=== PATIENT | female | born 1960 | race Caucasian/White ===

== ENCOUNTER 2017-10-04 09:24 | Emergency (ER) | payer MEDICARE, BC ==
[2017-10-04 09:40] VITALS: BP 157/85
--- NOTE | 2017-10-04 09:57 | EDM.PDOC ---
ED HPI GENERAL MEDICAL PROBLEM - General Chief Complaint: ENT Problem Stated Complaint: [id number] SINUSES THROAT Time Seen by Provider: 10/04/17 09:45 Source of Information: Reports: Patient, RN, RN Notes Reviewed History Limitations: Reports: No Limitations - History of Present Illness INITIAL COMMENTS - FREE TEXT/NARRATIVE: Pt presents to the ER with c/o burning sinus pain beginning at 0400 on Thursday morning. She states she had a sinus infection in July for which she was given Augmentin. She states it was resolved after this. Patient states she has many allergies and is not able to take nasal steroids. She states she has had a headache, sore throat, and fever and chills. She states she has some nausea but attributes this to the post nasal drainage. Patient states she has not vomited. Pt states she has taken acetaminophen with codeine, and is unable to take ibuprofen. Onset: Gradual Onset Date: 10/02/17 Onset Time: 04:00 Duration: Constant, Getting Worse Location: Reports: Head, Face, Chest Quality: Reports: Burning Severity: Moderate Improves with: Reports: None Worsens with: Reports: None Associated Symptoms: Reports: No Other Symptoms Head Pain Score (Numeric/FACES): 5 - Related Data Allergies Allergy/AdvReac Type Severity Reaction Status Date / Time trimethoprim [From Bactrim] Allergy Mild Hives Verified 10/04/17 09:42 clindamycin Allergy Hives Verified 10/04/17 09:42 diclofenac sodium Allergy Hives Verified 10/04/17 09:42 [From Voltaren] duloxetine HCl Allergy Nausea Verified 10/04/17 09:42 [From Cymbalta] fluticasone Allergy Cough Verified 10/04/17 09:42 Histamine H2 Inhibitors Allergy Cannot Verified 10/04/17 09:42 Remember house dust mite Allergy Cannot Verified 10/04/17 09:42 Remember ibuprofen Allergy Nausea and Verified 10/04/17 09:42 Vomiting levofloxacin [From Levaquin] Allergy Other Verified 10/04/17 09:42 lisinopril Allergy Cough Verified 10/04/17 09:42 metronidazole [From Flagyl] Allergy Hives Verified 10/04/17 09:42 Metronidazole HCl Allergy Hives Verified 10/04/17 09:42 [From Flagyl] minocycline [Minocycline] Allergy Hives Verified 10/04/17 09:42 mometasone furoate Allergy Cough Verified 10/04/17 09:42 [From Nasonex] pentazocine lactate Allergy Hallucinati Verified 10/04/17 09:42 [From Talwin] ons pregabalin [From Lyrica] Allergy lightheaded Verified 10/04/17 09:42 sertraline HCl [From Zoloft] Allergy Chest Verified 10/04/17 09:42 Tightness sulfamethoxazole Allergy Hives Verified 10/04/17 09:42 [From Bactrim] Home Meds: Home Meds Albuterol [Ventolin HFA] 2 puff INH Q6HR PRN 07/30/13 [History] Budesonide/Formoterol [Symbicort 160-4.5 MCG] 2 puff INH DAILY 07/30/13 [History ] Cyclobenzaprine [Flexeril] 10 mg PO TID PRN 07/30/13 [History] Fexofenadine [Merna] 180 mg PO DAILY 02/28/15 [History] LORazepam [Ativan] 0.5 mg PO Q6HR PRN 02/28/15 [History] Losartan [Cozaar] 100 mg PO DAILY 02/28/15 [History] Montelukast [Singulair] 10 mg PO BEDTIME 02/28/15 [History] Aspirin [Adult Low Dose Aspirin EC] 81 mg PO DAILY 06/19/15 [History] Omeprazole 20 mg PO BID 06/19/15 [History] oxyCODONE 5 - 10 mg PO Q6HR PRN 06/19/15 [History] Sennosides/Docusate Sodium [Ying-Colace] 1 tab PO DAILY 10/12/15 [History] Levothyroxine [Synthroid] 1 tab PO DAILY 10/04/17 [History] Past Medical History HEENT History: Reports: Allergic Rhinitis Cardiovascular History: Reports: Hypertension Respiratory History: Reports: Bronchitis, Recurrent, Other (See Below) Other Respiratory History: small airway disease, lung nodules Gastrointestinal History: Reports: GERD, Hiatal Hernia Other Genitourinary History: urinary frequency [employer] History: Reports: Endometriosis Musculoskeletal History: Reports: Osteoarthritis, Other (See Below) Other Musculoskeletal History: Scoliosis, DDD Neurological History: Reports: CVA, Headaches, Chronic, Neuropathy, Peripheral Psychiatric History: Reports: Anxiety Endocrine/Metabolic History: Reports: Other (See Below) Other Endocrine/Metabolic History: nodules and goiter on thyroid Hematologic History: Reports: Iron Deficiency Dermatologic History: Reports: Psoriasis - Infectious Disease History Infectious Disease History: Reports: Chicken Pox - Past Surgical History Female Surgical History: Reports: Section, Hysterectomy Neurological Surgical History: Reports: Spinal Fusion Social & Family History - Family History Cardiac: Reports: Hypertension, [place], Stent GI: Reports: Other (See Below) Other GI Family History: Chrohns Endocrine/Metabolic: Reports: Diabetes, Type I Oncologic: Reports: Leukemia, Lung Other Oncologic Family History: Father - CAD, CVA, DM HTN. Mother is from lung cancer; also had CAD, Crohns. Sister desceased also from lung cancer. both of patients larisa- son and cathy - have scoliosis - Living Situation & Occupation Living situation: Reports: with Family Occupation: Disabled ED ROS ENT - Review of Systems Review Of Systems: ROS reveals no pertinent complaints other than HPI. ED EXAM, ENT - Physical Exam Exam: See Below Exam Limited By: No Limitations General Appearance: Alert, WD/WN, Mild Distress Eye Exam: Bilateral Eye: EOMI, Normal Inspection Ears: Normal External Exam, Normal Canal, Hearing Grossly Normal, TM Dullness Nose: Normal Inspection, Normal Mucousa, No Blood Mouth/Throat: Normal Inspection, Normal Gums, Normal Lips, Normal Teeth, Tonsillar Erythema, Tonsillar Swelling Head: Atraumatic, Normocephalic Neck: Normal Inspection, Supple, Non-Tender, Full Range of Motion Respiratory/Chest: No Respiratory Distress, Lungs Clear, Normal Breath Sounds, No Accessory Muscle Use, Chest Non-Tender Cardiovascular: Normal Peripheral Pulses, Regular Rate, Rhythm, No Edema, No Gallop, No JVD, No Murmur, No Rub GI/Abdominal: Normal Bowel Sounds, Soft, Non-Tender, No Organomegaly, No Distention, No Abnormal Bruit, No Mass (Female) Exam: Deferred Rectal (Female) Exam: Deferred Back: Normal Inspection, Full Range of Motion Extremities: Normal Inspection, Normal Range of Motion, Non-Tender, No Pedal Edema, Normal Capillary Refill Neurological: Alert, Oriented, CN II-XII Intact, Normal Cognition, Normal Gait, Normal Reflexes, No Motor/Sensory Deficits Psychiatric: Normal Affect, Normal Mood Skin: Warm, Dry, Intact, Normal Color, No Rash Lymphatic: No Adenopathy Course - Vital Signs Last Recorded V/S: Last Vital Signs Temp 99.2 F 10/04/17 09:27 Pulse 110 H 10/04/17 09:27 Resp 20 10/04/17 09:27 BP 157/85 H 10/04/17 09:27 Pulse Ox 99 10/04/17 09:27 - Orders/Labs/Meds Orders: Active Orders 24 hr Category Date Time Status CULTURE STREP A CONFIRMATION [RM] Stat Lab 10/04/17 09:31 Results STREP SCRN A RAPID W CULT CONF [RM] Stat Lab 10/04/17 09:31 Results Labs: Rapid Strep: Negative Departure - Departure Time of Disposition: 09:52 Disposition: Home, Self-Care 01 Condition: Fair Clinical Impression: Sinusitis Qualifiers: Sinusitis location: unspecified location Chronicity: acute Recurrence: recurrent Qualified Code(s): J01.91 - Acute recurrent sinusitis, unspecified - Discharge Information Instructions: Sinusitis, Adult, [id number], Sinus Rinse, [id number], Upper Respiratory Infection, Adult, [id number] Forms: ED Department Discharge Additional Instructions: May use over the counter Flonase if able (as directed). May use saline irrigation rinses May use tylenol and/or ibuprofen as directed for pain/fever Follow up with your primary care facility if no improvement. - My Orders Last 24 Hours: My Active Orders 10/04/17 09:31 CULTURE STREP A CONFIRMATION [RM] Stat STREP SCRN A RAPID W CULT CONF [RM] Stat - Assessment/Plan Last 24 Hours: My Active Orders 10/04/17 09:31 CULTURE STREP A CONFIRMATION [RM] Stat STREP SCRN A RAPID W CULT CONF [RM] Stat
== END 2017-10-04 10:10 | disposition home or self-care (01) ==
LOC: DL.ED 09:24
DX: J01.91 Acute recurrent sinusitis, unspecified (principal); K21.9 Gastro-esophageal reflux disease without esophagitis; I10 Essential (primary) hypertension; Z88.1 Allergy status to other antibiotic agents; Z88.8 Allergy status to other drugs, medicaments and biological substances; Z88.6 Allergy status to analgesic agent; Z88.2 Allergy status to sulfonamides; Z79.899 Other long term (current) drug therapy; Z79.82 Long term (current) use of aspirin
CPT/HCPCS: 87081; 87430; 99282; 99283

== ENCOUNTER 2017-12-13 20:02 | Emergency (ER) | payer MEDICARE, BC ==
[2017-12-13 20:35] VITALS: BP 156/78
[2017-12-13] MEDS ORDERED: Nitrofurantoin Monohydrate/Macrocrystalline 100 MG Cap PO ONE (20:39)
--- NOTE | 2017-12-13 20:45 | EDM.PDOC ---
ED HPI GENERAL MEDICAL PROBLEM - General Chief Complaint: Genitourinary Problem Stated Complaint: UTI [id number] Time Seen by Provider: 12/13/17 20:40 Source of Information: Reports: Patient History Limitations: Reports: No Limitations - History of Present Illness INITIAL COMMENTS - FREE TEXT/NARRATIVE: 2 days h/o worsening uti Sx with urgency frequency dysuria tried OTC but '0' Pelvic Pain Score (Numeric/FACES): 7 - Related Data Allergies Allergy/AdvReac Type Severity Reaction Status Date / Time trimethoprim [From Bactrim] Allergy Mild Hives Verified 12/13/17 20:38 clindamycin Allergy Hives Verified 12/13/17 20:38 diclofenac sodium Allergy Hives Verified 12/13/17 20:38 [From Voltaren] duloxetine HCl Allergy Nausea Verified 12/13/17 20:38 [From Cymbalta] fluticasone Allergy Cough Verified 12/13/17 20:38 Histamine H2 Inhibitors Allergy Cannot Verified 12/13/17 20:38 Remember house dust mite Allergy Cannot Verified 12/13/17 20:38 Remember ibuprofen Allergy Nausea and Verified 12/13/17 20:38 Vomiting levofloxacin [From Levaquin] Allergy Other Verified 12/13/17 20:38 lisinopril Allergy Cough Verified 12/13/17 20:38 metronidazole [From Flagyl] Allergy Hives Verified 12/13/17 20:38 Metronidazole HCl Allergy Hives Verified 12/13/17 20:38 [From Flagyl] minocycline [Minocycline] Allergy Hives Verified 12/13/17 20:38 mometasone furoate Allergy Cough Verified 12/13/17 20:38 [From Nasonex] pentazocine lactate Allergy Hallucinati Verified 12/13/17 20:38 [From Talwin] ons pregabalin [From Lyrica] Allergy lightheaded Verified 12/13/17 20:38 sertraline HCl [From Zoloft] Allergy Chest Verified 12/13/17 20:38 Tightness sulfamethoxazole Allergy Hives Verified 12/13/17 20:38 [From Bactrim] Home Meds: Home Meds Albuterol [Ventolin HFA] 2 puff INH Q6HR PRN 07/30/13 [History] Budesonide/Formoterol [Symbicort 160-4.5 MCG] 2 puff INH DAILY 07/30/13 [History ] Cyclobenzaprine [Flexeril] 10 mg PO TID PRN 07/30/13 [History] Fexofenadine [Merna] 180 mg PO DAILY 02/28/15 [History] LORazepam [Ativan] 0.5 mg PO Q6HR PRN 02/28/15 [History] Losartan [Cozaar] 100 mg PO DAILY 02/28/15 [History] Montelukast [Singulair] 10 mg PO BEDTIME 02/28/15 [History] Aspirin [Adult Low Dose Aspirin EC] 81 mg PO DAILY 06/19/15 [History] Omeprazole 20 mg PO BID 06/19/15 [History] oxyCODONE 5 - 10 mg PO Q6HR PRN 06/19/15 [History] Sennosides/Docusate Sodium [Ying-Colace] 1 tab PO DAILY 10/12/15 [History] Levothyroxine [Synthroid] 1 tab PO DAILY 10/04/17 [History] Past Medical History HEENT History: Reports: Allergic Rhinitis Cardiovascular History: Reports: Hypertension Respiratory History: Reports: Bronchitis, Recurrent, Other (See Below) Other Respiratory History: small airway disease, lung nodules Gastrointestinal History: Reports: GERD, Hiatal Hernia Other Genitourinary History: urinary frequency [employer] History: Reports: Endometriosis Musculoskeletal History: Reports: Osteoarthritis, Other (See Below) Other Musculoskeletal History: Scoliosis, DDD Neurological History: Reports: CVA, Headaches, Chronic, Neuropathy, Peripheral Psychiatric History: Reports: Anxiety Endocrine/Metabolic History: Reports: Other (See Below) Other Endocrine/Metabolic History: nodules and goiter on thyroid Hematologic History: Reports: Iron Deficiency Dermatologic History: Reports: Psoriasis - Infectious Disease History Infectious Disease History: Reports: Chicken Pox - Past Surgical History Female Surgical History: Reports: Section, Hysterectomy Neurological Surgical History: Reports: Spinal Fusion Social & Family History - Family History Cardiac: Reports: Hypertension, [place], Stent GI: Reports: Other (See Below) Other GI Family History: Chrohns Endocrine/Metabolic: Reports: Diabetes, Type I Oncologic: Reports: Leukemia, Lung Other Oncologic Family History: Father - CAD, CVA, DM HTN. Mother is from lung cancer; also had CAD, Crohns. Sister desceased also from lung cancer. both of patients larisa- son and yojanaer - have scoliosis - Caffeine Use Caffeine Use: Reports: None, Coffee - Living Situation & Occupation Living situation: Reports: with Family Occupation: Disabled ED ROS GENERAL - Review of Systems Review Of Systems: ROS reveals no pertinent complaints other than HPI. ED EXAM, RENAL/ - Physical Exam Exam: See Below Exam Limited By: No Limitations General Appearance: Alert, WD/WN, Mild Distress, Other (discomfort) Ears: Hearing Grossly Normal Throat/Mouth: Normal Voice, No Airway Compromise Head: Atraumatic Neck: Non-Tender, Full Range of Motion Respiratory/Chest: No Respiratory Distress Cardiovascular: Regular Rate, Rhythm GI/Abdominal: Tender, Other (suprapubic) Neurological: Alert, Oriented, Normal Cognition, Normal Gait, No Motor/Sensory Deficits Psychiatric: Tearful Skin Exam: Warm, Dry, Normal Color Lymphatic: No Adenopathy Course - Vital Signs Last Recorded V/S: Last Vital Signs Temp 36.6 C 12/13/17 20:34 Pulse 66 12/13/17 20:34 Resp 17 12/13/17 20:34 BP 156/78 H 12/13/17 20:34 Pulse Ox 98 12/13/17 20:34 - Orders/Labs/Meds Labs: Laboratory Tests 12/13/17 Range/Units 20:05 Urine Color [place] (YELLOW) Urine Appearance Clear (CLEAR) Urine pH 6.0 (5.0-9.0) Ur Specific [place] <= 1.005 (1.005-1.030) Urine Protein Negative (NEGATIVE) Urine Glucose (UA) 100 H (NEGATIVE) Urine Ketones Negative (NEGATIVE) Urine Occult Blood Trace-intact H (NEGATIVE) Urine Nitrite Positive H (NEGATIVE) Urine Bilirubin Negative (NEGATIVE) Urine Urobilinogen 0.2 (0.2-1.0) mg/dL Ur Leukocyte Esterase Trace H (NEGATIVE) Urine RBC 0-5 /HPF Urine WBC 0-5 (0-5/HPF) /HPF Ur Epithelial Cells Few /HPF Urine Bacteria Few (0-FEW/HPF) /HPF Meds: Medications Discontinued Medications Generic Name Dose Route Start Last Admin Trade Name Freq PRN Reason Stop Dose Admin Nitrofurantoin Macrocrystals 100 mg 12/13/17 20:39 Macrobid PO 12/13/17 20:40 ONETIME ONE - Re-Assessments/Exams Free Text/Narrative Re-Assessment/Exam: 12/13/17 20:42 results discussed with pt. Departure - Departure Time of Disposition: 20:43 Disposition: Home, Self-Care 01 Condition: Good Clinical Impression: UTI, Urinary tract infectious disease - Discharge Information Instructions: Urinary Tract Infection, Adult, [id number] Additional Instructions: 1) continue with AZO for discomfort 2) continue drinking lots of liquids 3) return if develops fever rx given; macrobid 100mg bid x 20
== END 2017-12-13 20:51 | disposition home or self-care (01) ==
LOC: DL.ED 20:02
DX: N39.0 Urinary tract infection, site not specified (principal); I10 Essential (primary) hypertension; K21.9 Gastro-esophageal reflux disease without esophagitis; M19.90 Unspecified osteoarthritis, unspecified site; F41.9 Anxiety disorder, unspecified; Z79.82 Long term (current) use of aspirin; Z79.899 Other long term (current) drug therapy; Z88.1 Allergy status to other antibiotic agents; Z88.8 Allergy status to other drugs, medicaments and biological substances; Z88.6 Allergy status to analgesic agent; Z88.2 Allergy status to sulfonamides; Z91.09 Other allergy status, other than to drugs and biological substances
CPT/HCPCS: 81001; 99283; A9270

== ENCOUNTER 2018-01-24 18:15 | Emergency (ER) | payer MEDICARE, BC ==
[2018-01-24] MEDS ORDERED: Phenazopyridine 95 MG Tab PO ONE ×2 (18:16→19:23)
[2018-01-24 18:25] VITALS: BP 147/77
[2018-01-24] MEDS ORDERED: Phenazopyridine 95 MG Tab ONE (19:30)
--- NOTE | 2018-01-24 19:36 | EDM.PDOC ---
ED HPI GENERAL MEDICAL PROBLEM - General Chief Complaint: Genitourinary Problem Stated Complaint: UTI [id number] Time Seen by Provider: 01/24/18 19:15 Source of Information: Reports: Patient History Limitations: Reports: No Limitations - History of Present Illness INITIAL COMMENTS - FREE TEXT/NARRATIVE: This 57 yo female patient reports to the ED with lower abdominal pain and burning with urination. The patient reports her symptoms started at 1400 today. The patient reports that she took an antibiotic (Cefdinir) and AZO at 1500 with no symptom relief. The patient reports that she was given the antibiotics incase she got another infection. The patient has a full prescription for Cefdinir. Onset: Today Onset Date: 01/24/18 Onset Time: 14:00 Duration: Constant Location: Reports: Abdomen Quality: Reports: Burning Severity: Moderate Improves with: Reports: None Worsens with: Reports: None Associated Symptoms: Reports: No Other Symptoms Bladder Pain Score (Numeric/FACES): 5 - Related Data Allergies Allergy/AdvReac Type Severity Reaction Status Date / Time trimethoprim [From Bactrim] Allergy Mild Hives Verified 12/13/17 20:38 clindamycin Allergy Hives Verified 12/13/17 20:38 diclofenac sodium Allergy Hives Verified 12/13/17 20:38 [From Voltaren] duloxetine HCl Allergy Nausea Verified 12/13/17 20:38 [From Cymbalta] fluticasone Allergy Cough Verified 12/13/17 20:38 Histamine H2 Inhibitors Allergy Cannot Verified 12/13/17 20:38 Remember house dust mite Allergy Cannot Verified 12/13/17 20:38 Remember ibuprofen Allergy Nausea and Verified 12/13/17 20:38 Vomiting levofloxacin [From Levaquin] Allergy Other Verified 12/13/17 20:38 lisinopril Allergy Cough Verified 12/13/17 20:38 metronidazole [From Flagyl] Allergy Hives Verified 12/13/17 20:38 Metronidazole HCl Allergy Hives Verified 12/13/17 20:38 [From Flagyl] minocycline [Minocycline] Allergy Hives Verified 12/13/17 20:38 mometasone furoate Allergy Cough Verified 12/13/17 20:38 [From Nasonex] pentazocine lactate Allergy Hallucinati Verified 12/13/17 20:38 [From Talwin] ons pregabalin [From Lyrica] Allergy lightheaded Verified 12/13/17 20:38 sertraline HCl [From Zoloft] Allergy Chest Verified 12/13/17 20:38 Tightness sulfamethoxazole Allergy Hives Verified 12/13/17 20:38 [From Bactrim] Home Meds: Home Meds Albuterol [Ventolin HFA] 2 puff INH Q6HR PRN 07/30/13 [History] Budesonide/Formoterol [Symbicort 160-4.5 MCG] 2 puff INH DAILY 07/30/13 [History ] Cyclobenzaprine [Flexeril] 10 mg PO TID PRN 07/30/13 [History] Fexofenadine [Merna] 180 mg PO DAILY 02/28/15 [History] LORazepam [Ativan] 0.5 mg PO Q6HR PRN 02/28/15 [History] Losartan [Cozaar] 100 mg PO DAILY 02/28/15 [History] Montelukast [Singulair] 10 mg PO BEDTIME 02/28/15 [History] Aspirin [Adult Low Dose Aspirin EC] 81 mg PO DAILY 06/19/15 [History] Omeprazole 20 mg PO BID 06/19/15 [History] oxyCODONE 5 - 10 mg PO Q6HR PRN 06/19/15 [History] Sennosides/Docusate Sodium [Ying-Colace] 1 tab PO DAILY 10/12/15 [History] Levothyroxine [Synthroid] 75 mcg PO DAILY 10/04/17 [History] Cefdinir [Omnicef] 300 mg PO TID 01/24/18 [History] Past Medical History HEENT History: Reports: Allergic Rhinitis, Impaired Vision Cardiovascular History: Reports: Hypertension Respiratory History: Reports: Bronchitis, Recurrent, Other (See Below) Other Respiratory History: small airway disease, lung nodules Gastrointestinal History: Reports: GERD, Hiatal Hernia Other Genitourinary History: urinary frequency [employer] History: Reports: Endometriosis Musculoskeletal History: Reports: Osteoarthritis, Other (See Below) Other Musculoskeletal History: Scoliosis, DDD Neurological History: Reports: CVA, Headaches, Chronic, Neuropathy, Peripheral Psychiatric History: Reports: Anxiety Endocrine/Metabolic History: Reports: Other (See Below) Other Endocrine/Metabolic History: nodules and goiter on thyroid Hematologic History: Reports: Iron Deficiency Dermatologic History: Reports: Psoriasis - Infectious Disease History Infectious Disease History: Reports: Chicken Pox - Past Surgical History Female Surgical History: Reports: Section, Hysterectomy Neurological Surgical History: Reports: Spinal Fusion Social & Family History - Family History Cardiac: Reports: Hypertension, [place], Stent GI: Reports: Other (See Below) Other GI Family History: Chrohns Endocrine/Metabolic: Reports: Diabetes, Type I Oncologic: Reports: Leukemia, Lung Other Oncologic Family History: Father - CAD, CVA, DM HTN. Mother is from lung cancer; also had CAD, Crohns. Sister desceased also from lung cancer. both of patients larisa- son and cathy - have scoliosis - Tobacco Use Smoking Status *Q: Former Smoker Used Tobacco, but Quit: Yes Month/Year Tobacco Last Used: 2012 - Caffeine Use Caffeine Use: Reports: Coffee, Soda - Recreational Drug Use Recreational Drug Use: No - Living Situation & Occupation Living situation: Reports: with Family Occupation: Disabled ED ROS GENERAL - Review of Systems Review Of Systems: ROS reveals no pertinent complaints other than HPI. ED EXAM, RENAL/ - Physical Exam Exam: See Below Exam Limited By: No Limitations General Appearance: Alert, WD/WN, No Apparent Distress Eye Exam: Bilateral Eye: EOMI, Normal Inspection, PERRL Ears: Normal External Exam, Normal Canal, Hearing Grossly Normal, Normal TMs Nose: Normal Inspection, Normal Mucosa, No Blood Throat/Mouth: Normal Inspection, Normal Lips, Normal Teeth, Normal Gums, Normal Oropharynx, Normal Voice, No Airway Compromise Head: Atraumatic, Normocephalic Neck: Normal Inspection, Supple, Non-Tender, Full Range of Motion Respiratory/Chest: No Respiratory Distress, Lungs Clear, Normal Breath Sounds, No Accessory Muscle Use, Chest Non-Tender Cardiovascular: Normal Peripheral Pulses, Regular Rate, Rhythm, No Edema, No Gallop, No JVD, No Murmur, No Rub GI/Abdominal: Tender (lower abdomen) (Female) Exam: Deferred Rectal (Female) Exam: Deferred Back Exam: Normal Inspection, Full Range of Motion, NT Extremities: Normal Inspection, Normal Range of Motion, Non-Tender, Normal Capillary Refill, No Pedal Edema Neurological: Alert, Oriented, CN II-XII Intact, Normal Cognition, Normal Gait, Normal Reflexes, No Motor/Sensory Deficits Psychiatric: Normal Affect, Normal Mood Skin Exam: Warm, Dry, Intact, Normal Color, No Rash Lymphatic: No Adenopathy Course - Vital Signs Last Recorded V/S: Last Vital Signs Temp 36.7 C 01/24/18 18:24 Pulse 98 01/24/18 18:24 Resp 20 01/24/18 18:24 BP 147/77 H 01/24/18 18:24 Pulse Ox 95 01/24/18 18:24 - Orders/Labs/Meds Labs: Laboratory Tests 01/24/18 Range/Units 18:18 Urine Color [place] (YELLOW) Urine Appearance Clear (CLEAR) Urine pH 7.0 (5.0-9.0) Ur Specific [place] 1.010 (1.005-1.030) Urine Protein Negative (NEGATIVE) Urine Glucose (UA) Negative (NEGATIVE) Urine Ketones Negative (NEGATIVE) Urine Occult Blood Trace-lysed H (NEGATIVE) Urine Nitrite Negative (NEGATIVE) Urine Bilirubin Negative (NEGATIVE) Urine Urobilinogen 0.2 (0.2-1.0) mg/dL Ur Leukocyte Esterase Trace H (NEGATIVE) Urine RBC 0-5 /HPF Urine WBC 5-10 H (0-5/HPF) /HPF Ur Epithelial Cells Rare /HPF Urine Bacteria Rare (0-FEW/HPF) /HPF Meds: Medications Discontinued Medications Generic Name Dose Route Start Last Admin Trade Name Freq PRN Reason Stop Dose Admin Phenazopyridine HCl 190 mg 01/24/18 19:23 Urinary Pain Relief PO 01/24/18 19:24 ONETIME ONE Departure - Departure Time of Disposition: 19:32 Disposition: Home, Self-Care 01 Condition: Fair Clinical Impression: UTI, Urinary tract infectious disease - Discharge Information *PRESCRIPTION DRUG MONITORING PROGRAM REVIEWED*: Not Applicable *COPY OF PRESCRIPTION DRUG MONITORING REPORT IN PATIENT KUMAR: Not Applicable Instructions: Urinary Tract Infection, Adult, [id number] Care Plan Goals: The patient was advised of the examination and lab results during the visit. The patient was given an oral dose of Pyridium while in the ED. The patient was discharged with Pyridium (95 mg) #8 to take 1 by mouth 3 times per day. The patient should continue the Cefdinir (prescribed by another provider) as directed. The patient should follow-up with a urologist for continued evaluation and further treatment. If the patient has any additional symptoms or concerns, the patient should visit her primary care facility or return to the emergency department.
== END 2018-01-24 19:38 | disposition home or self-care (01) ==
LOC: DL.ED 18:15
DX: N39.0 Urinary tract infection, site not specified (principal); I10 Essential (primary) hypertension; K21.9 Gastro-esophageal reflux disease without esophagitis; Z79.899 Other long term (current) drug therapy; Z79.82 Long term (current) use of aspirin; Z88.1 Allergy status to other antibiotic agents; Z88.8 Allergy status to other drugs, medicaments and biological substances; Z88.6 Allergy status to analgesic agent; Z88.5 Allergy status to narcotic agent; Z91.09 Other allergy status, other than to drugs and biological substances
CPT/HCPCS: 81001; 87086; 99283; A9270

== ENCOUNTER 2021-11-25 16:05 | Emergency (ER) | payer MEDICARE, BC ==
[2021-11-25 17:15] VITALS: BP 172/77; PULSE 97
[2021-11-25] MEDS ORDERED: Albuterol/Ipratropium 3.0-0.5 MG/3 ML Neb Soln NEB ONE (17:21)
[2021-11-25 18:18] LABS: CORONAVIRUS COVID-19 NAA NEGATIVE (NEGATIVE)
[2021-11-25] MEDS ORDERED: predniSONE 20 MG Tab PO ONE (18:32)
== END 2021-11-25 19:08 | disposition home or self-care (01) ==
LOC: DL.ED 16:05
DX: J21.9 Acute bronchiolitis, unspecified (principal); I10 Essential (primary) hypertension; K21.9 Gastro-esophageal reflux disease without esophagitis; Z79.899 Other long term (current) drug therapy; Z20.822 Contact with and (suspected) exposure to COVID-19
CPT/HCPCS: 0240U; 71045; 94640; 99284; J7512; 99283; J7620-GY

== ENCOUNTER 2021-11-27 20:22 | Emergency (ER) | payer MEDICARE, BC ==
[2021-11-27] MEDS ORDERED: Benzonatate 100 MG Cap PO ONE (20:23)
[2021-11-27] MEDS ORDERED: Albuterol/Ipratropium 3.0-0.5 MG/3 ML Neb Soln ONE (20:29)
[2021-11-27] MEDS ORDERED: diphenhydrAMINE 50 MG/ML SDV IVPUSH ONE (20:29)
[2021-11-27] MEDS ORDERED: Albuterol/Ipratropium 3.0-0.5 MG/3 ML Neb Soln NEB ONE (20:30)
[2021-11-27 20:54] VITALS: BP 180/101; PULSE 115
[2021-11-27 21:30] LABS: PTT,PARTIAL THROMBOPLSTIN TIME 22.9 SEC (22.0-34.0)
[2021-11-27 21:46] LABS: ANION GAP 12.8 mEq/L (7-13)
[2021-11-27 22:12] LABS: CORONAVIRUS COVID-19 NAA NEGATIVE (NEGATIVE)
[2021-11-27] MEDS ORDERED: Benzonatate 100 MG Cap ONE (22:39)
== END 2021-11-27 22:46 | disposition home or self-care (01) ==
LOC: DL.ED 20:22
DX: R06.02 Shortness of breath (principal); R05.2 Subacute cough; I10 Essential (primary) hypertension; K21.9 Gastro-esophageal reflux disease without esophagitis; Z86.73 Personal history of transient ischemic attack (TIA), and cerebral infarction without residual deficits; Z88.1 Allergy status to other antibiotic agents; Z91.09 Other allergy status, other than to drugs and biological substances; Z88.8 Allergy status to other drugs, medicaments and biological substances; Z79.899 Other long term (current) drug therapy; Z79.82 Long term (current) use of aspirin; Z20.822 Contact with and (suspected) exposure to COVID-19
CPT/HCPCS: 0240U; 36415; 71045; 80053; 83735; 83880; 84443; 84484; 85025; 85379; 85610; 85730; 86140; 94640; 96374; 99285; A9270; J1200; J7620-GY

== ENCOUNTER 2023-08-23 12:24 | Emergency (ER) | payer MEDICARE, BC ==
[2023-08-23 12:47] VITALS: BP 158/92; PULSE 104
[2023-08-23 12:50] LABS: APPEARANCE,URINE CLEAR (CLEAR); BILIRUBIN,URINE NEGATIVE (NEGATIVE); COLOR,URINE YELLOW (YELLOW); GLUCOSE,URINE NEGATIVE (NEGATIVE); KETONES,URINE NEGATIVE (NEGATIVE); LEUKOCYTE ESTERASE,URINE NEGATIVE (NEGATIVE); NITRITE,URINE NEGATIVE (NEGATIVE); OCCULT BLOOD,URINE NEGATIVE (NEGATIVE); PROTEIN,URINE NEGATIVE (NEGATIVE); UROBILINOGEN,URINE 0.2 mg/dL (0.2-1.0)
[2023-08-23] MEDS: Amoxicillin/Clavulanate K 875-125 MG Tab PO ONE (13:13)
== END 2023-08-23 13:26 ==
LOC: DL.ED 12:24
DX: J01.91 Acute recurrent sinusitis, unspecified (principal); I10 Essential (primary) hypertension; K21.9 Gastro-esophageal reflux disease without esophagitis; Z88.8 Allergy status to other drugs, medicaments and biological substances; Z91.018 Allergy to other foods; Z88.1 Allergy status to other antibiotic agents; Z88.6 Allergy status to analgesic agent; Z88.2 Allergy status to sulfonamides; Z86.73 Personal history of transient ischemic attack (TIA), and cerebral infarction without residual deficits; Z90.49 Acquired absence of other specified parts of digestive tract; Z79.51 Long term (current) use of inhaled steroids; Z79.899 Other long term (current) drug therapy; Z79.82 Long term (current) use of aspirin
CPT/HCPCS: 81003; 99283; A9270

== ENCOUNTER 2023-08-27 11:00 | Emergency (ER) | payer MEDICARE, BC ==
[2023-08-27 11:12] VITALS: BP 176/80; PULSE 84
[2023-08-27] MEDS: cefTRIAXone 1 GM, Lidocaine 1% 2.1 ML IM ONE (12:55)
[2023-08-27] MEDS: Dexamethasone 4 MG/ML SDV IM ONE (12:55)
== END 2023-08-27 13:00 | disposition home or self-care (01) ==
LOC: DL.ED 11:00
DX: J03.90 Acute tonsillitis, unspecified (principal); I10 Essential (primary) hypertension; J45.909 Unspecified asthma, uncomplicated; Z79.899 Other long term (current) drug therapy; Z88.0 Allergy status to penicillin; Z88.1 Allergy status to other antibiotic agents; Z88.2 Allergy status to sulfonamides; Z88.3 Allergy status to other anti-infective agents; Z88.5 Allergy status to narcotic agent; Z88.6 Allergy status to analgesic agent; Z88.8 Allergy status to other drugs, medicaments and biological substances; Z91.048 Other nonmedicinal substance allergy status
CPT/HCPCS: 87081; 87430; 96372; 99284; J0696; J1100; J3490